=== PATIENT | male | born 1965 | race Two or more races ===

== ENCOUNTER 2022-05-11 09:07 | Inpatient (IN) | payer MEDICAID, OTHER ==
[~2022-05-11] VITALS: Ht 175.3 cm; Wt 74.4 kg
[2022-05-11 09:55] LABS: Basophils # (auto) 0.1 10 ^3/uL (0-0.2); Basophils % (auto) 0.9 % (0.0-2.0); Eosinophils # (auto) 0.1 10 ^3/uL (0-0.8); Hematocrit 38.7 % (41.0-53.0); Hemoglobin 13.3 g/dL (13.5-17.5); Lymphocytes % (auto) 29.9 % (10.0-50.0); Mean Corpuscular Hgb Conc. 34.4 g/dL (32.0-36.0); Mean Corpuscular Volume 89.9 fL (80.0-100.0); Monocytes # (auto) 0.6 10 ^3/uL (0-1.3); Monocytes % (auto) 8.3 % (0.0-12.0); Neutrophils % (auto) 58.9 % (37.0-80.0); Red Blood Cells 4.31 10^6/uL (4.5-5.90); Red Cell Distribution Width 13.1 % (11.8-14.3); White Blood Cell 6.7 10^3/uL (4.4-10.8)
[2022-05-11 10:01] LABS: Albumin 3.6 g/dL (3.4-5.0); Potassium 4.6 mmol/L (3.5-5.1)
[2022-05-11 10:04] LABS: BUN/Creatinine Ratio 23.6; Bilirubin, Total 0.6 mg/dL (0.2-1.0); Calcium 9.2 mg/dL (8.5-10.1); Total Protein 6.7 g/dL (6.4-8.2)
[2022-05-11] MEDS ORDERED: ACETAMINOPHEN 325 MG TAB PO ONE (12:15)
[2022-05-11] MEDS ORDERED: HYDROcodone-ACET 5/325MG TAB PO ONE (14:15)
[2022-05-11] MEDS ORDERED: HALOPERIDOL LACTATE 5 MG/ML INJ VIAL IM ONE (14:15)
[2022-05-11] MEDS ORDERED: SODIUM CHLORIDE 0.9% 1,000 ML IV ONE (14:15)
[2022-05-11] MEDS ORDERED: diphenhdrAMINE HCL 50 MG/1 ML VL IV ONE (14:15)
[2022-05-11] MEDS ORDERED: METOCLOPRAMIDE HCL 5MG/ml INJ 2ml VIAL IV ONE (14:15)
[2022-05-11] MEDS ORDERED: MAGNESIUM SULFATE 1GM/100ML 100 ML IV ONE (14:15)
[2022-05-11] MEDS ORDERED: DexAMETHasone SOD PHOS 10MG/1ML VIAL INJ IV ONE ×2 (14:15→19:00)
[2022-05-11 16:11] LABS: INR 1.1 (0.9-1.15); Partial Thromboplastin Time 28.5 sec (24.6-33.4)
[2022-05-11] MEDS ORDERED: AMPICILLIN SOD 2GM INJ 2 GM in SODIUM CHL 0.9% 100 ML IV ONE (19:00)
[2022-05-11] MEDS ORDERED: CEFTRIAXONE SODIUM 2 GM in D5W 5% 50 ML IV ONE (19:00)
[2022-05-11] MEDS ORDERED: VANCOMYCIN 1GM/250ML 250 ML IV ONE (19:00)
[2022-05-11 19:50] LABS: Protein, CSF 56.6 mg/dL (15-45)
[2022-05-11 20:44] LABS: CSF White Blood Cells 1 CUMM (0-5)
[2022-05-11] MEDS ORDERED: DOCUSATE SOD 100 MG CAP PO PRN (20:45)
[2022-05-11] MEDS ORDERED: NITROGLYCERIN 0.4 MG SL TAB SL PRN (20:45)
[2022-05-11] MEDS ORDERED: MORPHINE SULFATE INJ 2 MG/ml SYRG IV PRN (20:45)
[2022-05-11] MEDS ORDERED: ONDANSETRON HCL 4 MG/2 ML VIAL IV PRN (20:45)
[2022-05-11] MEDS ORDERED: DEXTROSE (50%) 50ML SYRG IV PRN (20:45)
[2022-05-11] MEDS ORDERED: CEFTRIAXONE SODIUM 2 GM in D5W 5% 50 ML IV SCH (21:35)
[2022-05-11] MEDS ORDERED: D5W 5% IV SCH (22:30)
[2022-05-11] MEDS ORDERED: AMPHOTERICIN B LIPOSOME IV SCH (22:30)
[2022-05-11] MEDS: HYDROcodone-ACET 5/325MG TAB PO PRN (22:54)
[2022-05-11] MEDS: InsuLIN REG 1unit/0.01ml Soln (100units/ml) SC SCH (23:41)
[2022-05-11] MEDS: ACCU-CHEK COMFORT CURVE STRIP VI SCH (23:42)
[2022-05-12] VITALS (15 sets, daily range): BP systolic 102–146; BP diastolic 51–77
[2022-05-12 06:04] LABS: Basophils # (auto) 0 10 ^3/uL (0-0.2); Basophils % (auto) 0.1 % (0.0-2.0); Eosinophils # (auto) 0 10 ^3/uL (0-0.8); Hematocrit 36.6 % (41.0-53.0); Hemoglobin 12.5 g/dL (13.5-17.5); Lymphocytes % (auto) 12.5 % (10.0-50.0); Mean Corpuscular Hemoglobin 30.5 pg (28.0-32.0); Mean Corpuscular Hgb Conc. 34.2 g/dL (32.0-36.0); Mean Corpuscular Volume 89.1 fL (80.0-100.0); Monocytes # (auto) 0.2 10 ^3/uL (0-1.3); Monocytes % (auto) 2.9 % (0.0-12.0); Neutrophils # (auto) 6.8 10 ^3/uL (1.6-8.6); Neutrophils % (auto) 84.5 % (37.0-80.0); Red Cell Distribution Width 12.7 % (11.8-14.3)
[2022-05-12 06:13] LABS: Potassium 4.5 mmol/L (3.5-5.1)
[2022-05-12 06:19] LABS: Albumin 3.1 g/dL (3.4-5.0); BUN/Creatinine Ratio 26.8; Bilirubin, Total 0.4 mg/dL (0.2-1.0); Calcium 8.2 mg/dL (8.5-10.1)
[2022-05-12] MEDS: ACCU-CHEK COMFORT CURVE STRIP VI SCH ×4 (06:30→22:35)
[2022-05-12] MEDS: InsuLIN REG 1unit/0.01ml Soln (100units/ml) SC SCH ×4 (06:33→22:00)
[2022-05-12] MEDS: PANTOPRAZOLE 40 MG/10 ML VIAL INJ IV SCH ×2 (08:06→09:36)
[2022-05-12] MEDS ORDERED: LORazepam 2MG/ML-1ML VIAL IV PRN (09:30)
[2022-05-12] MEDS: HYDROcodone-ACET 5/325MG TAB PO PRN ×3 (09:37→22:35)
[2022-05-12 09:44] LABS: Cholesterol 152 mg/dL (< 200)
[2022-05-12 09:46] LABS: HDL Cholesterol 52 mg/dL (40-59); LDL Cholesterol 98 mg/dL (< 100); Triglycerides 51 mg/dL (< 150)
[2022-05-12] MEDS ORDERED: VANCOMYCIN PER PHARMACY 0 MG IV SCH (10:30)
[2022-05-12] MEDS ORDERED: VANCOMYCIN 1GM/250ML 250 ML IV SCH (12:00)
[2022-05-12] MEDS: ASPirin 81 mg TAB PO SCH (12:05)
[2022-05-12] MEDS: GABAPENTIN 100 MG CAP PO SCH ×2 (15:27→22:35)
[2022-05-12] MEDS ORDERED: CEFTRIAXONE SODIUM 2 GM in D5W 5% 50 ML IV SCH (21:00)
[2022-05-12] MEDS: ATORVASTATIN 20 MG TAB PO SCH (22:35)
[2022-05-13] VITALS (20 sets, daily range): BP systolic 106–137; BP diastolic 59–83
[2022-05-13] MEDS: GABAPENTIN 100 MG CAP PO SCH ×3 (06:00→21:54)
[2022-05-13] MEDS: InsuLIN REG 1unit/0.01ml Soln (100units/ml) SC SCH ×4 (07:00→22:05)
[2022-05-13] MEDS: ACCU-CHEK COMFORT CURVE STRIP VI SCH ×4 (07:07→21:54)
[2022-05-13] MEDS: PANTOPRAZOLE 40 MG/10 ML VIAL INJ IV SCH (08:55)
[2022-05-13] MEDS: ASPirin 81 mg TAB PO SCH (08:55)
[2022-05-13] MEDS: HYDROcodone-ACET 5/325MG TAB PO PRN ×3 (08:56→23:38)
[2022-05-13 10:22] LABS: BUN/Creatinine Ratio 21.7; Calcium 8.6 mg/dL (8.5-10.1); Potassium 4.5 mmol/L (3.5-5.1)
[2022-05-13 10:45] LABS: Basophils # (auto) 0 10 ^3/uL (0-0.2); Basophils % (auto) 0.5 % (0.0-2.0); Eosinophils # (auto) 0.1 10 ^3/uL (0-0.8); Eosinophils % (auto) 1.4 % (0.0-7.0); Hematocrit 35.8 % (41.0-53.0); Hemoglobin 12.3 g/dL (13.5-17.5); Lymphocytes # (auto) 2.8 10 ^3/uL (0.4-5.4); Lymphocytes % (auto) 33.7 % (10.0-50.0); Mean Corpuscular Hemoglobin 30.8 pg (28.0-32.0); Mean Corpuscular Hgb Conc. 34.4 g/dL (32.0-36.0); Mean Corpuscular Volume 89.6 fL (80.0-100.0); Monocytes # (auto) 0.6 10 ^3/uL (0-1.3); Monocytes % (auto) 7.8 % (0.0-12.0); Neutrophils # (auto) 4.6 10 ^3/uL (1.6-8.6); Neutrophils % (auto) 56.6 % (37.0-80.0); Nucleated Red Blood Cells % 0.1 %; Red Blood Cells 3.99 10^6/uL (4.5-5.90); Red Cell Distribution Width 13.1 % (11.8-14.3); White Blood Cell 8.2 10^3/uL (4.4-10.8)
[2022-05-13] MEDS: ATORVASTATIN 20 MG TAB PO SCH (21:54)
[2022-05-14] VITALS (8 sets, daily range): BP systolic 108–149; BP diastolic 55–85
[2022-05-14 05:05] LABS: Basophils # (auto) 0 10 ^3/uL (0-0.2); Basophils % (auto) 0.4 % (0.0-2.0); Eosinophils # (auto) 0.1 10 ^3/uL (0-0.8); Eosinophils % (auto) 1.4 % (0.0-7.0); Hematocrit 34.9 % (41.0-53.0); Hemoglobin 11.7 g/dL (13.5-17.5); Lymphocytes # (auto) 2.2 10 ^3/uL (0.4-5.4); Lymphocytes % (auto) 31.6 % (10.0-50.0); Mean Corpuscular Hgb Conc. 33.4 g/dL (32.0-36.0); Mean Corpuscular Volume 89.7 fL (80.0-100.0); Monocytes # (auto) 0.6 10 ^3/uL (0-1.3); Monocytes % (auto) 9.4 % (0.0-12.0); Neutrophils # (auto) 3.9 10 ^3/uL (1.6-8.6); Neutrophils % (auto) 57.2 % (37.0-80.0); Nucleated Red Blood Cells % 0.1 %; Red Blood Cells 3.89 10^6/uL (4.5-5.90); White Blood Cell 6.8 10^3/uL (4.4-10.8)
[2022-05-14 05:19] LABS: Potassium 4.7 mmol/L (3.5-5.1)
[2022-05-14 05:24] LABS: Bilirubin, Total 0.3 mg/dL (0.2-1.0); Total Protein 5.6 g/dL (6.4-8.2)
[2022-05-14] MEDS: ACCU-CHEK COMFORT CURVE STRIP VI SCH ×5 (06:32→21:00)
[2022-05-14] MEDS: GABAPENTIN 100 MG CAP PO SCH ×3 (06:32→20:58)
[2022-05-14] MEDS: InsuLIN REG 1unit/0.01ml Soln (100units/ml) SC SCH ×4 (06:33→21:03)
[2022-05-14] MEDS: HYDROcodone-ACET 5/325MG TAB PO PRN ×4 (07:47→20:57)
[2022-05-14] MEDS: PANTOPRAZOLE 40 MG/10 ML VIAL INJ IV SCH (09:34)
[2022-05-14] MEDS ORDERED: DEXTROSE (50%) 50ML SYRG IV PRN (11:30)
[2022-05-14 11:47] LABS: Hepatitis B Core IgM Negative; Hepatitis C Antibody Negative (Negative)
[2022-05-14 11:48] LABS: Hepatitis A Ab IgM Negative
[2022-05-15] MEDS: HYDROcodone-ACET 5/325MG TAB PO PRN ×3 (01:12→14:15)
[2022-05-15 05:00] VITALS: BP 138/85
[2022-05-15] MEDS: GABAPENTIN 100 MG CAP PO SCH ×3 (05:30→21:36)
[2022-05-15] MEDS: InsuLIN REG 1unit/0.01ml Soln (100units/ml) SC SCH ×4 (06:01→21:35)
[2022-05-15] MEDS: ACCU-CHEK COMFORT CURVE STRIP VI SCH ×4 (06:01→21:30)
[2022-05-15 09:00] VITALS: BP 132/83
[2022-05-15] MEDS: PANTOPRAZOLE 40 MG/10 ML VIAL INJ IV SCH (10:12)
[2022-05-15] MEDS: MORPHINE SULFATE INJ 2 MG/ml SYRG IV PRN ×3 (10:13→18:35)
[2022-05-15 13:00] VITALS: BP 146/83
[2022-05-15 16:06] LABS: Cryptococcus Antigen CSF Negative (Negative)
[2022-05-15 17:00] VITALS: BP 133/79
[2022-05-15 22:00] VITALS: BP 123/74
[2022-05-16] MEDS: HYDROcodone-ACET 5/325MG TAB PO PRN (02:56)
[2022-05-16 05:00] VITALS: BP 129/79
[2022-05-16] MEDS: GABAPENTIN 100 MG CAP PO SCH ×3 (05:34→21:48)
[2022-05-16] MEDS: ACCU-CHEK COMFORT CURVE STRIP VI SCH ×4 (05:40→21:49)
[2022-05-16] MEDS: InsuLIN REG 1unit/0.01ml Soln (100units/ml) SC SCH ×4 (05:47→21:50)
[2022-05-16] MEDS: MORPHINE SULFATE INJ 2 MG/ml SYRG IV PRN ×3 (05:48→13:35)
[2022-05-16 09:00] VITALS: BP 145/86
[2022-05-16] MEDS: PANTOPRAZOLE 40 MG/10 ML VIAL INJ IV SCH (10:00)
[2022-05-16] MEDS ORDERED: GABA300C10 PO (12:06)
[2022-05-16] MEDS ORDERED: GLIP10TA9 PO (12:09)
[2022-05-16] MEDS ORDERED: PANT40TA2 PO (12:09)
[2022-05-16] MEDS ORDERED: METF-372 PO (12:09)
[2022-05-16] MEDS ORDERED: ATOR20TA50 PO (12:09)
[2022-05-16] MEDS ORDERED: LOSA-39 PO (12:09)
[2022-05-16 13:00] VITALS: BP 141/82
[2022-05-16] MEDS: ACETAMINOPHEN 325 MG TAB PO PRN (16:32)
[2022-05-16 17:00] VITALS: BP 119/74
[2022-05-16 22:00] VITALS: BP 112/68
[2022-05-17 05:00] VITALS: BP 126/82
[2022-05-17] MEDS: GABAPENTIN 100 MG CAP PO SCH ×3 (06:25→21:32)
[2022-05-17] MEDS: ACETAMINOPHEN 325 MG TAB PO PRN ×2 (06:25→18:10)
[2022-05-17] MEDS: ACCU-CHEK COMFORT CURVE STRIP VI SCH ×4 (06:25→21:32)
[2022-05-17] MEDS: InsuLIN REG 1unit/0.01ml Soln (100units/ml) SC SCH ×4 (06:26→21:36)
[2022-05-17 08:00] VITALS: BP 108/76
[2022-05-17] MEDS: PANTOPRAZOLE 40 MG/10 ML VIAL INJ IV SCH (09:07)
[2022-05-17 12:00] VITALS: BP 133/73
[2022-05-17 16:00] VITALS: BP 119/72
[2022-05-17 22:00] VITALS: BP 122/69
[2022-05-17] MEDS: MORPHINE SULFATE INJ 2 MG/ml SYRG IV PRN (22:21)
[2022-05-18 05:00] VITALS: BP 135/75
[2022-05-18] MEDS: ACCU-CHEK COMFORT CURVE STRIP VI SCH ×4 (06:24→22:19)
[2022-05-18] MEDS: InsuLIN REG 1unit/0.01ml Soln (100units/ml) SC SCH ×4 (06:24→22:26)
[2022-05-18] MEDS: GABAPENTIN 100 MG CAP PO SCH ×3 (06:28→22:15)
[2022-05-18] MEDS: MORPHINE SULFATE INJ 2 MG/ml SYRG IV PRN (06:29)
[2022-05-18 08:00] VITALS: BP 117/71
[2022-05-18 09:10] VITALS: BP 117/64
[2022-05-18] MEDS ORDERED: INFLUENZA QUAD 2022-2023 0.5 ML SYRG IM ONE (10:00)
[2022-05-18] MEDS ORDERED: PNEUMOCOCCAL VACC POLYS 25 MCG/0.5 ML VIAL IM ONE (10:00)
[2022-05-18] MEDS: PANTOPRAZOLE 40 MG/10 ML VIAL INJ IV SCH (10:21)
[2022-05-18 12:44] VITALS: BP 100/72
[2022-05-18] MEDS: ACETAMINOPHEN 325 MG TAB PO PRN (15:38)
[2022-05-18 16:43] VITALS: BP 118/71
[2022-05-18 22:00] VITALS: BP 126/73
[2022-05-19] MEDS: HYDROcodone-ACET 5/325MG TAB PO PRN ×2 (01:51→19:12)
[2022-05-19 05:00] VITALS: BP 138/81
[2022-05-19] MEDS: GABAPENTIN 100 MG CAP PO SCH ×3 (05:07→21:13)
[2022-05-19] MEDS: ACCU-CHEK COMFORT CURVE STRIP VI SCH ×4 (06:20→21:41)
[2022-05-19] MEDS: InsuLIN REG 1unit/0.01ml Soln (100units/ml) SC SCH ×4 (07:03→21:42)
[2022-05-19 09:00] VITALS: BP 124/77
[2022-05-19] MEDS: PANTOPRAZOLE 40 MG/10 ML VIAL INJ IV SCH (09:34)
[2022-05-19 13:00] VITALS: BP 129/79
[2022-05-19 17:00] VITALS: BP 124/76
[2022-05-19 20:00] VITALS: BP 111/70
[2022-05-19 22:00] VITALS: BP 118/68
[2022-05-20 05:00] VITALS: BP 115/78
[2022-05-20] MEDS: ACETAMINOPHEN 325 MG TAB PO PRN (05:18)
[2022-05-20] MEDS: GABAPENTIN 100 MG CAP PO SCH (05:18)
[2022-05-20] MEDS: InsuLIN REG 1unit/0.01ml Soln (100units/ml) SC SCH ×2 (06:07→11:18)
[2022-05-20] MEDS: ACCU-CHEK COMFORT CURVE STRIP VI SCH ×2 (06:07→11:19)
[2022-05-20 06:30] LABS: Basophils # (auto) 0 10 ^3/uL (0-0.2); Basophils % (auto) 0.6 % (0.0-2.0); Eosinophils # (auto) 0.2 10 ^3/uL (0-0.8); Eosinophils % (auto) 2.4 % (0.0-7.0); Hematocrit 37.2 % (41.0-53.0); Hemoglobin 12.4 g/dL (13.5-17.5); Lymphocytes # (auto) 2.4 10 ^3/uL (0.4-5.4); Lymphocytes % (auto) 32.8 % (10.0-50.0); Mean Corpuscular Hemoglobin 29.8 pg (28.0-32.0); Mean Corpuscular Hgb Conc. 33.4 g/dL (32.0-36.0); Mean Corpuscular Volume 89.3 fL (80.0-100.0); Monocytes # (auto) 0.7 10 ^3/uL (0-1.3); Monocytes % (auto) 9.3 % (0.0-12.0); Neutrophils % (auto) 54.9 % (37.0-80.0); Red Blood Cells 4.17 10^6/uL (4.5-5.90); Red Cell Distribution Width 13.2 % (11.8-14.3); White Blood Cell 7.3 10^3/uL (4.4-10.8)
[2022-05-20 06:45] LABS: Potassium 4.6 mmol/L (3.5-5.1)
[2022-05-20 06:55] LABS: Albumin 3.4 g/dL (3.4-5.0); BUN/Creatinine Ratio 23.6; Bilirubin, Total 0.4 mg/dL (0.2-1.0); Calcium 8.7 mg/dL (8.5-10.1); Total Protein 5.7 g/dL (6.4-8.2)
[2022-05-20 07:45] VITALS: BP 111/70
[2022-05-20 09:00] VITALS: BP 136/79
[2022-05-20] MEDS: PANTOPRAZOLE 40 MG/10 ML VIAL INJ IV SCH (09:15)
[2022-05-20 09:22] VITALS: BP 136/79
[2022-05-20] MEDS: MORPHINE SULFATE INJ 2 MG/ml SYRG IV PRN (09:22)
== END 2022-05-20 13:53 | DRG 58 ==
LOC: EDBD 09:07 → ER 09:07 → TELE 20:47 → DOU IN ICU 05-12 08:47 → TELE-CENTR 05-14 12:19
PROVIDERS: ADMIT Nurse Practitioner Family; ATTEND Student in an Organized Health Care Education/Training Program
PROC: 009U3ZX Drainage of Spinal Canal, Percutaneous Approach, Diagnostic (ICD-10-PCS; principal; 2022-05-11)
DX: R20.0 Anesthesia of skin (principal); E11.9 Type 2 diabetes mellitus without complications; R51.9 Headache, unspecified; H57.13 Ocular pain, bilateral; E78.5 Hyperlipidemia, unspecified; I10 Essential (primary) hypertension; M19.90 Unspecified osteoarthritis, unspecified site; H54.8 Legal blindness, as defined in USA; R53.1 Weakness; H57.89 Other specified disorders of eye and adnexa; M79.10 Myalgia, unspecified site; M25.562 Pain in left knee; M25.561 Pain in right knee; Z79.899 Other long term (current) drug therapy; Z86.61 Personal history of infections of the central nervous system; Z83.3 Family history of diabetes mellitus; Z82.49 Family history of ischemic heart disease and other diseases of the circulatory system
CPT/HCPCS: 36415; 70450; 70551; 71045; 80048; 80053; 80061; 80074; 80202; 82945; 82962; 84157; 85025; 85610; 85730; 86641; 86703; 87040; 87070; 87081; 87205; 87426; 87529; 87899; 88108; 89051; 93005; 93306; 93886; 96365; 96366; 96367; 96372; 96375; 97116; 97530; 99291; C9113; G0378; J0696; J1100; J1815; J7060